=== PATIENT | male | born 1975 | race Caucasian/White ===

== ENCOUNTER 2021-02-01 17:31 | Emergency (ER) | payer MEDICAID ==
--- NOTE | 2021-02-01 17:39 | ERPHSYRPT ---
- History of Present Illness Time Seen by Provider: 02/01/21 17:39 Source: patient Physician History: This is a 45-year-old white male who presents with 24-hour history of sore throat and dental pain. He has chronic dental pain issues. The sore throat started first but the pain goes into his teeth. There is no respiratory compromise. He does not have a cough. He does state that it hurts to swallow. He has not noticed any fevers. He has no chest pain. He has no abdominal pain. Severity: moderate Prearrival Treatment: no prearrival treatment Modifying Factors: Improves With: other (swallowing hurts) Associated Symptoms: sore throat Allergies/Adverse Reactions: No Known Drug Allergies Allergy (Unverified 02/01/21 17:43) Travel Risk - International Travel Have you traveled outside of the country in past 3 weeks: No - Coronavirus Screening Are you exhibiting any of the following symptoms?: No Close contact with a COVID-19 positive Pt in past 14-21 Days: No - Review of Systems Constitutional: No Symptoms Eyes: No Symptoms Ears, Nose, & Throat: Painful Swallowing Respiratory: No Symptoms, No Cough, No Dyspnea, No Stridor, No Wheezing Cardiac: No Symptoms Abdominal/Gastrointestinal: No Symptoms Genitourinary Symptoms: No Symptoms Musculoskeletal: No Symptoms Skin: No Symptoms Neurological: No Symptoms Psychological: No Symptoms Endocrine: No Symptoms Hematologic/Lymphatic: No Symptoms Immunological/Allergic: No Symptoms All Other Systems: Reviewed and Negative - Past Medical History Pertinent Past Medical History: Yes - Past Surgical History Past Surgical History: Yes - Nursing Vital Signs Nursing Vital Signs: Initial Vital Signs Temperature 97.9 F 02/01/21 17:38 Pulse Rate 117 H 02/01/21 17:38 Respiratory Rate 18 02/01/21 17:38 Blood Pressure 116/74 02/01/21 17:38 O2 Sat by Pulse Oximetry 99 02/01/21 17:38 Pain Scale Pain Intensity 9 - Physical Exam General Appearance: no apparent distress, alert, anxiety Eye Exam: bilateral eye: normal inspection, PERRL, EOMI Ear Exam: bilateral ear: auricle normal, canal normal, TM normal Nasal Exam: normal inspection Throat Exam: pharynx swelling (Mild), pharynx tenderness, No uvula swelling Neck Exam: normal inspection, non-tender, supple, full range of motion, trachea midline, No stiff neck Cardiovascular/Respiratory Exam: chest non-tender, no respiratory distress, No wheezing Abdominal Exam: non-tender Neurologic Exam: alert, oriented x 3, cooperative, 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, normal mood/affect, nml cerebellar function, nml station & gait, sensation nml Skin Exam: normal color, warm, dry O2 Delivery: Room Air - Course Nursing assessment & vital signs reviewed: Yes Ordered Tests: Medication Summary Generic Name Dose Route Start Last Admin Trade Name Ashok PRN Reason Stop Dose Admin Hydrocodone Bitart/Acetaminophen 10 ml 02/01/21 18:02 Hydrocodone-Acetamin 2.5-108/5 Ml Solution PO 02/01/21 18:03 STAT STA Ceftriaxone Sodium 1,000 mg 02/01/21 18:01 Rocephin 1000 Mg Inj IM 02/01/21 18:02 STAT ONE Methylprednisolone Sodium Succinate 125 mg 02/01/21 18:02 Solu-Medrol 125 Mg IM 02/01/21 18:03 STAT ONE - Progress Counseled pt/family regarding: diagnosis, need for follow-up - Departure Departure Disposition: Home Clinical Impression: Pharyngitis, Pain, dental Condition: Stable Critical Care Time: No Additional Instructions: Drink plenty of fluids. Add Tylenol [id number] for additional pain control. Follow-up with a dentist for evaluation of your dental pain. Take your medications as prescribed Prescriptions: Prednisone 10 mg [Deltasone 10 mg] 10 mg PO TID #12 tablet Azithromycin 250 mg [Zithromax 250 MG TABLET] 250 mg PO ZPACK #6 tablet
[2021-02-01] MEDS ORDERED: Rocephin 1000 MG INJ IM ONE (18:01)
[2021-02-01 18:02] VITALS: BP 116/74; O2SAT 99
[2021-02-01] MEDS ORDERED: solu-MEDROL 125 MG IM ONE (18:02)
[2021-02-01] MEDS ORDERED: HYDROCODONE-ACETAMIN 2.5-108/5 ML SOLUTION PO STA (18:02)
[2021-02-01] MEDS ORDERED: XYLOCAINE 1% HCL 20 ML MDV ONE (18:08)
[2021-02-01] MEDS ORDERED: Rocephin 1000 MG INJ ONE (18:08)
[2021-02-01] MEDS ORDERED: solu-MEDROL 125 MG ONE (18:08)
[2021-02-01] MEDS ORDERED: HYDROCODONE-ACETAMIN 2.5-108/5 ML SOLUTION ONE (18:08)
[2021-02-01 18:49] VITALS: PULSE 100
== END 2021-02-01 18:59 | disposition home or self-care (01) ==
LOC: ED 17:31
DX: J02.9 Acute pharyngitis, unspecified (principal); K08.89 Other specified disorders of teeth and supporting structures
CPT/HCPCS: 96372; 99284; J0696; J2930; A9270-GY

== ENCOUNTER 2022-04-25 09:34 | Emergency (ER) | payer MEDICAID, OTHER ==
[2022-04-25] MEDS ORDERED: Sodium Chloride 0.9% 1000 ML 1,000 ML IV STA (09:54)
[2022-04-25] MEDS ORDERED: Sodium Chloride 0.9% 1000 ML 1,000 ML ONE (10:36)
--- NOTE | 2022-04-25 10:41 | ERPHSYRPT ---
- History of Present Illness Source: patient, EMS Patient Subjective Stated Complaint: C/O Suicidal thoughts with a plan to hang himself or intentionally OD on heroin. Triage Nursing Assessment: Patient brought in by ambulance. He is alert and oriented but has trouble with his train of thought. He is noted to jump around in conversation. Admits to recently using meth; having trouble being still in the bed. He is cooperative. Both big toes area swollen, blistered, bruised. Various scratches noted to BLE and back. All clothing and personal items taken from patient room. Timing/Duration: day(s) (4) Severity of Symptoms-Max: moderate Severity of Symptoms-Current: moderate Context related to: legal problems Suicidal thoughts: specific plan Associated Symptoms: confused, depressed, frustrated, impaired concentration Previous symptoms: same symptoms as today Hx Tetanus, Diphtheria Vaccination/Date Given: Yes Hx Influenza Vaccination/Date Given: No Hx Pneumococcal Vaccination/Date Given: No - History of Present Illness Time Seen by Provider: 04/25/22 10:00 Physician History: Patient is a 46-year-old male who presents with suicidal ideation. He was released from care home approximately 4 days ago he is homeless he had some shoes at one time which got wet and then infected his feet and now he has no shoes. He was seen at [facility] yesterday and was given antibiotics and pain medicine release. The patient states that if he were to kill himself he would either hang himself or he would OD on heroin. He used heroin last approximately a year ago. He complains of depression disturbed thought processes and suicidal thoughts. (ANGEL BRYANT) Allergies/Adverse Reactions: No Known Drug Allergies Allergy (Verified 04/25/22 09:39) Home Medications: No Reportable Medications [No Reported Medications] 04/25/22 [History] Travel Risk - International Travel Have you traveled outside of the country in past 3 weeks: No - Coronavirus Screening Are you exhibiting any of the following symptoms?: No - Vaccine Status Have you recieved a Covid-19 vaccination: No - Past Medical History Pertinent Past Medical History: Yes Psycho-Social History: Anxiety, Attention Deficit Disorder Other Medical History: Hep C, seasonal allergies - Past Surgical History Past Surgical History: No - Social History Smoking Status: Current every day smoker How long have you smoked: 20 yeras Exposure to second hand smoke: Yes Drug Use: methamphetamines, heroin Patient Lives Alone: Yes (Homeless) - Review of Systems Constitutional: No Fever, No Chills Eyes: No Symptoms Ears, Nose, & Throat: No Symptoms Respiratory: No Cough, No Dyspnea Cardiac: No Chest Pain, No Edema, No Syncope Abdominal/Gastrointestinal: No Abdominal Pain, No Nausea, No Vomiting, No Diarrhea Genitourinary Symptoms: No Dysuria Musculoskeletal: Other (Pain in both feet from infection), No Back Pain, No Neck Pain Skin: Cellulitis, No Rash Neurological: No Dizziness, No Focal Weakness, No Sensory Changes Psychological: No Symptoms Endocrine: No Symptoms All Other Systems: Reviewed and Negative - Physical Exam General Appearance: mild distress, alert Eyes, Ears, Nose, Throat Exam: normal ENT inspection, moist mucous membranes Neck Exam: normal inspection, non-tender, supple Respiratory Exam: normal breath sounds, lungs clear, No respiratory distress Cardiovascular Exam: regular rate/rhythm, No edema Gastrointestinal/Abdominal Exam: soft, No tenderness, No distention Extremities Exam: normal range of motion, tenderness, other (Large bullae on both great toes secondary to infection), No evidence of injury, No edema Current Suicidality: has suicide plan Neurological Exam: calm, oriented x 3, anxious, depressed affect Appearance: impaired insight, impaired recent memory Behavior/Eye Contact/Speech: good eye contact Thoughts/Hallucinations: normal thought pattern Skin Exam: other (Bullous lesions both feet) SpO2 Interpretation: normal SpO2: 98 O2 Delivery: Room Air - Nursing Vital Signs Nursing Vital Signs: Initial Vital Signs Temperature 98.9 F 04/25/22 09:40 Pulse Rate 92 H 04/25/22 09:40 Respiratory Rate 20 04/25/22 09:40 Blood Pressure 135/113 04/25/22 09:40 O2 Sat by Pulse Oximetry 98 04/25/22 09:40 Pain Scale Pain Intensity 0 - Course Nursing assessment & vital signs reviewed: Yes - Radiology Exams Foot X-ray Interpretation: Reviewed by me, Other (Indications of soft tissue infection no foreign bodies) Chest X-ray Interpretation: Reviewed by me Ordered Tests: Active Orders 24 hr Category Date Time Status IV Insertion STAT Care 04/25/22 09:54 Completed CHEST 1 VIEW (PORTABLE) Stat Exams 04/25/22 09:56 Completed FOOT (MINIMUM 3 VIEWS) Stat Exams 04/25/22 09:58 Completed FOOT (MINIMUM 3 VIEWS) Stat Exams 04/25/22 10:21 Completed ACETAMINOPHEN Stat Lab 04/25/22 10:35 Completed BLOOD CULTURE Stat Lab 04/25/22 11:00 Received CBC W DIFF Stat Lab 04/25/22 09:54 Completed CMP Stat Lab 04/25/22 10:35 Completed ETHYL ALCOHOL Stat Lab 04/25/22 10:35 Completed Lactic Acid Stat Lab 04/25/22 10:35 Completed SALICYLATE Stat Lab 04/25/22 10:35 Completed UA W/RFX CULTURE Stat Lab 04/25/22 12:00 Completed Urine Triage Profile Stat Lab 04/25/22 12:00 Completed Medication Summary Discontinued Medications Generic Name Dose Route Start Last Admin Trade Name Freq PRN Reason Stop Dose Admin Acetaminophen 1,000 mg 04/25/22 18:21 04/25/22 18:23 Acetaminophen 500 Mg Tablet PO 05/25/22 18:20 1,000 mg Q4H PRN PRN Administration HEADACHE Acetaminophen Confirm 04/25/22 18:22 Acetaminophen 500 Mg Tablet Administered 04/25/22 18:23 Dose 1,000 mg .ROUTE .STK-MED ONE Sodium Chloride 1,000 mls @ 999 mls/hr 04/25/22 09:54 04/25/22 11:50 Sodium Chloride 0.9% 1000 Ml IV 04/25/22 10:54 Infused .Q1H1M STA Infusion Sodium Chloride Confirm 04/25/22 10:36 Sodium Chloride 0.9% 1000 Ml Administered 04/25/22 10:37 Dose 1,000 mls @ ud .ROUTE .STK-MED ONE Ceftriaxone Sodium/Dextrose 1 g in 50 mls @ 100 mls/hr 04/25/22 12:35 04/25/22 13:16 Rocephin 1 Gm-D5w 50 Ml Bag IV 04/25/22 13:04 Infused STAT STA Infusion Ceftriaxone Sodium/Dextrose Confirm 04/25/22 12:40 Rocephin 1 Gm-D5w 50 Ml Bag Administered 04/25/22 12:41 Dose 1 g in 50 mls @ ud IV .STK-MED ONE Lab/Rad Data: Laboratory Result Diagrams 04/25/22 09:54 04/25/22 10:35 Laboratory Results 04/25/22 04/25/22 04/25/22 Range/Units 12:00 12:00 12:00 WBC (4.0-10.5) x10^3/uL RBC (4.1-5.6) x10^6/uL Hgb (12.5-18.0) g/dL Hct (42-50) % MCV (78-100) fL MCH (26-32) pg MCHC (32-36) g/dL RDW (11.5-14.0) % Plt Count (150-450) x10^3/uL MPV (7.5-11.0) fL Gran % (36.0-66.0) % Immature Gran % (Auto) (0.00-0.4) % Nucleat RBC Rel Count (0.00-0.1) % Eos # (Auto) (0-0.5) x10^3/uL Immature Gran # (Auto) (0.00-0.03) x10^3u/L Absolute Lymphs (auto) (1.0-4.6) x10^3/uL Absolute Monos (auto) (0.0-1.3) x10^3/uL Absolute Nucleated RBC (0.00-0.01) x10^3u/L Lymphocytes % (24.0-44.0) % Monocytes % (0.0-12.0) % Eosinophils % (0.00-5.0) % Basophils % (0.0-0.4) % Absolute Granulocytes (1.4-6.9) x10^3/uL Basophils # (0-0.4) x10^3/uL Sodium (137-145) mmol/L Potassium (3.5-5.1) mmol/L Chloride (98-107) mmol/L Carbon Dioxide (22-30) mmol/L Anion Gap (5-15) MEQ/L BUN (9-20) mg/dL Creatinine (0.66-1.25) mg/dL Estimated GFR ML/MIN Glucose (74-106) mg/dL Lactic Acid (0.4-2.0) Calcium (8.4-10.2) mg/dL Total Bilirubin (0.2-1.3) mg/dL AST (17-59) U/L ALT (0-50) U/L Alkaline Phosphatase (38-126) U/L Serum Total Protein (6.3-8.2) g/dL Albumin (3.5-5.0) g/dL Urinalys Dipstick Clnc MAIN LAB Urine Color YELLOW (YELLOW) Urine Appearance CLEAR (CLEAR) Urine pH 6.5 (5-6) Ur Specific Burnside <=1.005 (1.005-1.025) POC Urine Protein Conf NEGATIVE (Negative) Urine Ketones TRACE (NEGATIVE) Urine Nitrite NEGATIVE (NEGATIVE) Urine Bilirubin NEGATIVE (NEGATIVE) Urine Urobilinogen 0.2 (0-1) mg/dL Urine Leukocytes NEGATIVE (NEGATIVE) Urine WBC (Auto) 3-5 (0-5) /HPF Urine RBC (Auto) NONE (0-2) /HPF U Epithel Cells (Auto) NONE (FEW) /HPF Urine Bacteria (Auto) NONE (NEGATIVE) /HPF Urine RBC TRACE-INTACT (0-5) Willard/ul Ur Culture Indicated? NO Urine Glucose NEGATIVE (NEGATIVE) mg/dL Salicylates (2-20) mg/dL Urine Opiates Level NEGATIVE (NEGATIVE) Ur Methadone NEGATIVE (NEGATIVE) Acetaminophen (10-30) ug/ml Urine Barbiturates NEGATIVE (NEGATIVE) Ur Phencyclidine (PCP) NEGATIVE (NEGATIVE) Urine Amphetamine POSITIVE (NEGATIVE) U Benzodiazepine Level NEGATIVE (NEGATIVE) Urine Cocaine NEGATIVE (NEGATIVE) Urine Marijuana (THC) NEGATIVE (NEGATIVE) Ethyl Alcohol (0-10) mg/dL Influenza Type A Ag NEGATIVE (NEGATIVE) Influenza Type B Ag NEGATIVE (NEGATIVE) RSV (PCR) NEGATIVE (Negative) SARS-CoV-2 (PCR) NEGATIVE (NEGATIVE) 04/25/22 04/25/22 04/25/22 Range/Units 10:35 10:35 09:54 WBC 10.2 (4.0-10.5) x10^3/uL RBC 4.83 (4.1-5.6) x10^6/uL Hgb 13.6 (12.5-18.0) g/dL Hct 40.9 L (42-50) % MCV 84.7 (78-100) fL MCH 28.2 (26-32) pg MCHC 33.3 (32-36) g/dL RDW 12.8 (11.5-14.0) % Plt Count 154 (150-450) x10^3/uL MPV 11.2 H (7.5-11.0) fL Gran % 72.7 H (36.0-66.0) % Immature Gran % (Auto) 0.3 (0.00-0.4) % Nucleat RBC Rel Count 0.0 (0.00-0.1) % Eos # (Auto) 0.09 (0-0.5) x10^3/uL Immature Gran # (Auto) 0.03 (0.00-0.03) x10^3u/L Absolute Lymphs (auto) 1.70 (1.0-4.6) x10^3/uL Absolute Monos (auto) 0.91 (0.0-1.3) x10^3/uL Absolute Nucleated RBC 0.00 (0.00-0.01) x10^3u/L Lymphocytes % 16.7 L (24.0-44.0) % Monocytes % 9.0 (0.0-12.0) % Eosinophils % 0.9 (0.00-5.0) % Basophils % 0.4 (0.0-0.4) % Absolute Granulocytes 7.38 H (1.4-6.9) x10^3/uL Basophils # 0.04 (0-0.4) x10^3/uL Sodium 137 (137-145) mmol/L Potassium 3.4 L (3.5-5.1) mmol/L Chloride 102 (98-107) mmol/L Carbon Dioxide 25 (22-30) mmol/L Anion Gap 13.7 (5-15) MEQ/L BUN 16 (9-20) mg/dL Creatinine 0.75 (0.66-1.25) mg/dL Estimated GFR > 60.0 ML/MIN Glucose 99 (74-106) mg/dL Lactic Acid 0.6 (0.4-2.0) Calcium 8.9 (8.4-10.2) mg/dL Total Bilirubin 2.40 H (0.2-1.3) mg/dL AST 79 H (17-59) U/L ALT 61 H (0-50) U/L Alkaline Phosphatase 80 (38-126) U/L Serum Total Protein 7.4 (6.3-8.2) g/dL Albumin 4.4 (3.5-5.0) g/dL Urinalys Dipstick Clnc Urine Color (YELLOW) Urine Appearance (CLEAR) Urine pH (5-6) Ur Specific Burnside (1.005-1.025) POC Urine Protein Conf (Negative) Urine Ketones (NEGATIVE) Urine Nitrite (NEGATIVE) Urine Bilirubin (NEGATIVE) Urine Urobilinogen (0-1) mg/dL Urine Leukocytes (NEGATIVE) Urine WBC (Auto) (0-5) /HPF Urine RBC (Auto) (0-2) /HPF U Epithel Cells (Auto) (FEW) /HPF Urine Bacteria (Auto) (NEGATIVE) /HPF Urine RBC (0-5) Willard/ul Ur Culture Indicated? Urine Glucose (NEGATIVE) mg/dL Salicylates < 1.0 L (2-20) mg/dL Urine Opiates Level (NEGATIVE) Ur Methadone (NEGATIVE) Acetaminophen < 10 L (10-30) ug/ml Urine Barbiturates (NEGATIVE) Ur Phencyclidine (PCP) (NEGATIVE) Urine Amphetamine (NEGATIVE) U Benzodiazepine Level (NEGATIVE) Urine Cocaine (NEGATIVE) Urine Marijuana (THC) (NEGATIVE) Ethyl Alcohol < 10 (0-10) mg/dL Influenza Type A Ag (NEGATIVE) Influenza Type B Ag (NEGATIVE) RSV (PCR) (Negative) SARS-CoV-2 (PCR) (NEGATIVE) - Progress Progress: unchanged - Progress Progress Note: 04/25/22 18:16 Patient's diagnoses includes suicidal ideation and bilateral toe infection. (ANGEL BRYANT) Patient was not seen, evaluated or dispositioned by Dr. La 04/26/22 07:04 (JESUS MANUEL LA) - Departure Departure Disposition: Transfer Critical Care Time: No - Departure Clinical Impression: Suicidal ideation, Blister of foot or toe, right, infected, Blister of toe of left foot with infection Condition: Fair Referrals: DOCTOR,NO FAMILY [Primary Care Provider] - Follow up/PCP as directed
--- NOTE | 2022-04-25 10:57 | XRAY ---
Exam: AP upright portable chest film from 04/25/2022. Comparison: [None.] Indication: 46-year-old male with suicidal. Findings: The patient is rotated mildly toward the right. The transverse heart size is normal. There is a small oval opacity measuring about 2.5 cm in height and 2 cm in width overlying the left lateral margin of T11-T12. I'm not sure what this represents. Consider small hiatal hernia, lateral osteophyte, lung nodule/granuloma, or an artifact. The remainder of the lung gutierrez appears clear. The pulmonary vascularity is normal. No pneumothorax or pleural fluid is seen. No acute osseous process is seen. The left acromioclavicular joint space is slightly wider than the right acromioclavicular joint space. Correlate clinically regarding prior partial excision of the lateral aspect of the left clavicle. Impression: 1. No acute cardiopulmonary disease is seen. 2. Other incidental findings, as discussed above.
[2022-04-25 11:00] LABS: Absolute Neutrophil Ct (ANC) 7.38 x10^3/uL (1.4-6.9); Basophil (Absolute #) 0.04 x10^3/uL (0-0.4); Eosinophil % 0.9 % (0.00-5.0); Eosinophil (Absolute #) 0.09 x10^3/uL (0-0.5); Hematocrit 40.9 % (42-50); Hemoglobin 13.6 g/dL (12.5-18.0); Lymphocytes % 16.7 % (24.0-44.0); Mean Cell Volume 84.7 fL (78-100); Mean Corpuscular Hemoglobin 28.2 pg (26-32); Mean Corpuscular Hgb Concent. 33.3 g/dL (32-36); Mean Platelet Volume 11.2 fL (7.5-11.0); Monocyte (Absolute #) 0.91 x10^3/uL (0.0-1.3); Neutrophil % 72.7 % (36.0-66.0); Platelet Count 154 x10^3/uL (150-450); Red Blood Count 4.83 x10^6/uL (4.1-5.6); Red Cell Distribution Width 12.8 % (11.5-14.0); White Blood Count 10.2 x10^3/uL (4.0-10.5)
--- NOTE | 2022-04-25 11:05 | XRAY ---
Exam: 3 views of the right foot from 04/25/2022. Comparison: [None.] Indication: 46-year-old male with infection. Findings: AP, oblique, and lateral radiographs of the right foot were obtained. There is some focal soft tissue prominence overlying the dorsal medial aspect of the distal right first metatarsal head which may be due to a bunion. Correlate clinically. The right first MTP joint space appears unremarkable. In addition, there is a suggestion of some soft tissue swelling about the right great toe. Some soft tissue air and tiny punctate radiodensities are seen dorsal to the distal phalanx of the right great toe at the level of the nail. No underlying bone abnormality is seen. I see no acute fracture, dislocation, or focal bone destruction. The remainder the joint spaces appears unremarkable. No abnormal callus or periosteal reaction is seen. Impression: 1. There is soft tissue swelling about the distal portion of the right great toe. In addition, I note some soft tissue air and tiny punctate radiodensities overlying the dorsal aspect of the distal phalanx of the right great toe at the level of the nail. This could be due to trauma or infection. No underlying abnormality of the distal phalanx of the right great toe is seen. 2. There is a suggestion of a mild bunion overlying the dorsal medial aspect of the distal right first metatarsal head. 3. No other significant abnormality of the right foot is seen.
--- NOTE | 2022-04-25 11:11 | XRAY ---
Exam: 3 views of the left foot from 04/25/2022. Comparison: [None.] Indication: 46-year-old male with infection. Findings: AP, oblique, and lateral radiographs of the left foot were obtained. There is significant soft tissue swelling about the left great toe. There appears to be some truncation of the distal tip of the left great toe on the lateral radiograph. Correlate clinically to exclude partial soft tissue amputation. I see no soft tissue air or underlying bone abnormality of the left great toe. No fracture or dislocation is seen. No other evidence of bone destruction is seen. The plantar arch is normal. Impression: 1. There is significant soft tissue swelling of the distal phalanx of the left great toe without definite radiopaque soft tissue foreign body, soft tissue air, or underlying bone destruction. This may reflect cellulitis/soft tissue infection. Correlate clinically. 2. I cannot exclude partial soft tissue amputation of the distal tip of the left great toe on the lateral radiograph. Correlate clinically. 3. No other bone or joint abnormality of the left foot is seen.
[2022-04-25 11:24] LABS: ACETAMINOPHEN < 10 ug/ml (10-30); ALBUMIN 4.4 g/dL (3.5-5.0); ALKALINE PHOSPHATASE 80 U/L (38-126); ANION GAP 13.7 MEQ/L (5-15); BLOOD UREA NITROGEN 16 mg/dL (9-20); CHLORIDE 102 mmol/L (98-107); Calcium 8.9 mg/dL (8.4-10.2); Carbon Dioxide 25 mmol/L (22-30); Creatinine 1 0.75 mg/dL (0.66-1.25); EST GLOMERULAR FILTRATION RATE > 60.0 ML/MIN; ETHYL ALCOHOL < 10 mg/dL (0-10); Glucose 99 mg/dL (74-106); Potassium 3.4 mmol/L (3.5-5.1); SALICYLATE < 1.0 mg/dL (2-20); SGOT/AST 79 U/L (17-59); SGPT/ALT 61 U/L (0-50); SODIUM 137 mmol/L (137-145); Total Protein 7.4 g/dL (6.3-8.2)
[2022-04-25 12:27] LABS: Appearance CLEAR (CLEAR); Bilirubin NEGATIVE (NEGATIVE); Dipstick done @ ? MAIN LAB; Glucose NEGATIVE (NEGATIVE); Ketones TRACE (NEGATIVE); Nitrite NEGATIVE (NEGATIVE); Ph 6.5 (5-6); Protein,Urine Dip NEGATIVE (Negative); RBC TRACE-INTACT Ery/ul (0-5); Specific Gravity <=1.005 (1.005-1.025); Urobilinogen 0.2 mg/dL (0-1)
[2022-04-25 12:32] LABS: Amphetamine,Urine POSITIVE (NEGATIVE); Barbiturate,Urine NEGATIVE (NEGATIVE); Benzodiazepine,Urine NEGATIVE (NEGATIVE); Cocaine,Urine NEGATIVE (NEGATIVE); Methadone,Urine NEGATIVE (NEGATIVE); Opiate,Urine NEGATIVE (NEGATIVE); PCP,Urine NEGATIVE (NEGATIVE); THC,Urine NEGATIVE (NEGATIVE)
[2022-04-25] MEDS ORDERED: ROCEPHIN 1 Gm-D5w 50 ml Bag** 1 G/50 ML IVPB IV STA (12:35)
[2022-04-25] MEDS ORDERED: ROCEPHIN 1 Gm-D5w 50 ml Bag** 1 G/50 ML IVPB IV ONE (12:40)
[2022-04-25 12:50] LABS: INFLUENZA A NEGATIVE (NEGATIVE); INFLUENZA B NEGATIVE (NEGATIVE); RESPIRATORY SYNCTIAL VIRUS NEGATIVE (Negative); SARS-CoV-2 Xpert Express NEGATIVE (NEGATIVE)
[2022-04-25 13:03] LABS: Urine Cultured Indicated? NO
[2022-04-25] MEDS ORDERED: TYLENOL EXTRA STRENGTH 500 MG PO PRN (18:21)
[2022-04-25] MEDS ORDERED: TYLENOL EXTRA STRENGTH 500 MG ONE (18:22)
[2022-04-25 19:58] VITALS: BP 120/69; PULSE 83; O2SAT 97
== END 2022-04-25 21:00 ==
LOC: ED 09:34
DX: R45.851 Suicidal ideations (principal); S90.422A Blister (nonthermal), left great toe, initial encounter; S90.421A Blister (nonthermal), right great toe, initial encounter; L08.9 Local infection of the skin and subcutaneous tissue, unspecified; Z72.0 Tobacco use; Z28.310 Unvaccinated for COVID-19
CPT/HCPCS: 0241U; 36000; 36415; 71045; 73630; 80053; 80307; 81015; 83605; 85025; 87040; 99285; G0480; J0696; A9270-GY